=== PATIENT | female | born 1945 ===

== ENCOUNTER 2017-08-31 06:51 | Emergency (ER) | payer MEDICARE, OTHER ==
[~2017-08-31] VITALS: Ht 157.5 cm; Wt 81.7 kg
[~2017-08-31 06:51] MED LIST: ALLO100 PO; CIPR500 PO; CLON.2 PO; DOXY100 PO; Dyazide 37.5-21 EACH PO; FLUT.05NI; HYDACE5 PO; METR500 PO; OMEP20ER PO; ONDA4 PO; OXYACE5T PO; POTCHL10ER PO; RXHYD5325 PO; RXONDA4ODT MM; RXPROM25 PO; SIMV10 PO
[2017-08-31] MEDS ORDERED: POTCHL10ER PO (07:40)
[2017-08-31 07:41] LABS: Source, Urine Clean Catch
[2017-08-31 07:46] LABS: Bilirubin, Urine Neg (Neg); Blood, Urine 3+ (Neg); Glucose Qualitative, Urine Neg (Neg); Ketones, Urine Neg (Neg); Leukocyte Esterase, Urine 1+ (Neg); Nitrite, Urine Neg (Neg); Protein, Urine Neg (Neg); Urobilinogen, Urine NORM (Normal)
[2017-08-31 07:59] LABS: BASOPHILS ABSOLUTE AUTO 0.04 K/mm3 (0.00-0.23); BASOPHILS PERCENT AUTO 0 % (0-2); EOSINOPHILS ABSOLUTE AUTO 0.05 K/mm3 (0.00-0.68); EOSINOPHILS PERCENT AUTO 0 % (0-6); Hematocrit 44.4 % (33.0-51.0); Hemoglobin 15.5 g/dL (11.5-16.0); IMMATURE GRAN ABSOLUTE AUTO 0.03 K/mm3 (0.00-0.10); IMMATURE GRAN PERCENT AUTO 0 % (0-1); LYMPHOCYTES ABSOLUTE AUTO 2.67 K/mm3 (0.84-5.20); LYMPHOCYTES PERCENT AUTO 20 % (21-46); MONOCYTES PERCENT AUTO 10 % (4-13); Mean Corpuscular HGB 29.2 pg (26.0-34.0); Mean Corpuscular HGB Conc 34.9 g/dL (31.5-36.5); Mean Corpuscular Volume 84 fL (80-100); NEUTROPHILS ABSOLUTE AUTO 9.24 K/mm3 (1.96-9.15); NEUTROPHILS PERCENT AUTO 69 % (41-73); Platelet Count 191 K/mm3 (150-400); RDW Coefficient Variation 12.8 % (11.7-14.2); RDW Standard Deviation 39.2 fL (35.1-46.3); Red Blood Cell Count 5.31 M/mm3 (3.80-5.20); White Blood Cell Count 13.33 K/mm3 (4.00-11.30)
[2017-08-31 08:11] LABS: Appearance, Urine Clear (Clear); Color, Urine Yellow (P-Yellow); White Blood Cells, Urine 0-2 /hpf (0-5)
[2017-08-31 08:12] LABS: Bacteria Few /hpf; Mucus Light (0-Heavy); Squamous Epithelial Cells Mod /hpf (Few)
[2017-08-31 08:19] LABS: Alanine Aminotransfer (ALT/SGP 31 U/L (12-78); Albumin, Blood 3.6 g/dL (3.4-5.0); Albumin/Globulin Ratio 0.9 (0.8-1.8); Alk Phos 58 U/L (50-136); Anion Gap 9 mmol/L (6-16); Aspartate Aminotrans (AST/SGOT 18 U/L (12-37); Bilirubin, Total 0.9 mg/dL (0.1-1.0); Blood Urea Nitrogen 19 mg/dL (8-24); Bun/Creatinine Ratio 21.2 (12.0-20.0); CO2, Blood 25 mmol/L (21-32); Calcium, Blood 9.5 mg/dL (8.5-10.1); Chloride, Blood 105 mmol/L (98-108); Globulin, Blood 3.9 g/dL (2.2-4.0); Glomerular Filtration Rate >60 (60-); Glucose, Blood 118 mg/dL (70-99); Potassium, Blood 3.2 mmol/L (3.5-5.5); Sodium, Blood 139 mmol/L (136-145); Total Protein, Blood 7.5 g/dL (6.4-8.2)
[2017-08-31] MEDS ORDERED: Flagyl500 MG PO (09:02)
[2017-08-31] MEDS ORDERED: Amox Tr-K Clv1 EAC2 PO (09:02)
[2017-08-31] MEDS ORDERED: ONDA4ODT MM (09:03)
== END 2017-08-31 09:07 | disposition home or self-care (01) ==
LOC: ER 06:51
PROVIDERS: Physician Assistant
DX: K57.32 Diverticulitis of large intestine without perforation or abscess without bleeding (principal); Z88.1 Allergy status to other antibiotic agents; Z91.012 Allergy to eggs; Z88.8 Allergy status to other drugs, medicaments and biological substances; Z79.899 Other long term (current) drug therapy; I10 Essential (primary) hypertension; K21.9 Gastro-esophageal reflux disease without esophagitis
CPT/HCPCS: 36415; 74176; 80053; 81001; 82272; 83690; 85025; 87086; 96360; 99284; J7030

== ENCOUNTER → 2017-09-02 | Outpatient (CLI) | payer MEDICARE, OTHER ==
[~2017-09-02] MED LIST changes: +Amox Tr-K Clv1 EAC2 PO; +Flagyl500 MG PO; +ONDA4ODT MM
[2017-09-02 08:44] LABS: BASOPHILS ABSOLUTE AUTO 0.06 K/mm3 (0.00-0.23); BASOPHILS PERCENT AUTO 1 % (0-2); EOSINOPHILS ABSOLUTE AUTO 0.15 K/mm3 (0.00-0.68); EOSINOPHILS PERCENT AUTO 1 % (0-6); Hematocrit 45.6 % (33.0-51.0); Hemoglobin 15.7 g/dL (11.5-16.0); IMMATURE GRAN ABSOLUTE AUTO 0.04 K/mm3 (0.00-0.10); IMMATURE GRAN PERCENT AUTO 0 % (0-1); LYMPHOCYTES ABSOLUTE AUTO 2.58 K/mm3 (0.84-5.20); LYMPHOCYTES PERCENT AUTO 24 % (21-46); MONOCYTES PERCENT AUTO 9 % (4-13); Mean Corpuscular HGB 28.8 pg (26.0-34.0); Mean Corpuscular HGB Conc 34.4 g/dL (31.5-36.5); Mean Corpuscular Volume 84 fL (80-100); Mean Platelet Volume 10.1 fL (9.1-12.4); NEUTROPHILS ABSOLUTE AUTO 6.91 K/mm3 (1.96-9.15); NEUTROPHILS PERCENT AUTO 65 % (41-73); Platelet Count 232 K/mm3 (150-400); RDW Coefficient Variation 12.9 % (11.7-14.2); RDW Standard Deviation 38.5 fL (35.1-46.3); Red Blood Cell Count 5.46 M/mm3 (3.80-5.20); White Blood Cell Count 10.64 K/mm3 (4.00-11.30)
[2017-09-02 09:03] LABS: Albumin, Blood 3.7 g/dL (3.4-5.0); Albumin/Globulin Ratio 0.8 (0.8-1.8); Bilirubin, Total 0.8 mg/dL (0.1-1.0); Bun/Creatinine Ratio 16.2 (12.0-20.0); Calcium, Blood 9.3 mg/dL (8.5-10.1); Creatinine, Blood 1.11 mg/dL (0.40-1.00); Globulin, Blood 4.4 g/dL (2.2-4.0); Potassium, Blood 3.3 mmol/L (3.5-5.5); Total Protein, Blood 8.1 g/dL (6.4-8.2)
== END ==
LOC: LAB SHORT 08:41 → LAB EV 08:41
PROVIDERS: Physician Assistant
DX: R10.9 Unspecified abdominal pain (principal)
CPT/HCPCS: 80053; 83690; 85025

== ENCOUNTER → 2017-12-02 | Outpatient (CLI) | payer MEDICARE, OTHER ==
[2017-12-03 15:03] LABS: Stool Occult Bld Immuno 1 Negative (NEGATIVE)
== END | disposition home or self-care (01) ==
LOC: LAB SHORT 12:00 → LAB 12:00
PROVIDERS: Family Medicine
DX: Z12.11 Encounter for screening for malignant neoplasm of colon (principal); Z12.12 Encounter for screening for malignant neoplasm of rectum
CPT/HCPCS: G0328

== ENCOUNTER 2018-06-11 15:33 | Inpatient (IN) | payer MEDICARE, OTHER ==
[~2018-06-11] VITALS: Ht 154.9 cm; Wt 80.7 kg
[~2018-06-11 15:33] MED LIST changes: -ACET325 PO; -AMLO10 PO; -CLON.3TP TOP; -CLONIDINE1 EAC1 TD; -DOCU100 PO; -LISI20 PO; -Metoprolol Tart50 MG PO
[2018-06-11] MEDS ORDERED: LISI20 PO (15:47)
--- NOTE | 2018-06-12 01:31 | NUR ---
Admission/[place] of Care: Patient arrived to unit via stretcher, accompanied by ED nurse. A/O x4, c/o mild intermittent, otherwise denies pain/discomfort. C/o mild SOB when first transferred to ICU bed, has since resolved with increasing HOB and O2-96-98% on RA. Nitro gtt at 15mcg/min upon arrival to unit, increase to 25mcg/min, systolic BP 180's-190's. Will continue to monitor BP and titrate nitro gtt as indicated. Received verbal per Finn Pushpinger for PO KCl 40meq x1, per K+-3.3 from [facility]. Able to give patient PO clonidine, and Norvasc shortly after arrival, holding other PO meds at this time r/t intermittent nausea. Gave x1 prn Zofran, little effect noted. Contacted Dr. Ortega and received order for x1 additional dose of IV Zofran now. Will continue to monitor for pain, comfort, safety.
[2018-06-12 03:27] LABS: BASOPHILS ABSOLUTE AUTO 0.03 K/mm3 (0.00-0.23); BASOPHILS PERCENT AUTO 0 % (0-2); EOSINOPHILS ABSOLUTE AUTO 0.01 K/mm3 (0.00-0.68); EOSINOPHILS PERCENT AUTO 0 % (0-6); Hematocrit 48.1 % (33.0-51.0); Hemoglobin 16.2 g/dL (11.5-16.0); IMMATURE GRAN ABSOLUTE AUTO 0.03 K/mm3 (0.00-0.10); IMMATURE GRAN PERCENT AUTO 0 % (0-1); LYMPHOCYTES ABSOLUTE AUTO 1.93 K/mm3 (0.84-5.20); LYMPHOCYTES PERCENT AUTO 16 % (21-46); MONOCYTES ABSOLUTE AUTO 0.53 K/mm3 (0.16-1.47); MONOCYTES PERCENT AUTO 4 % (4-13); Mean Corpuscular HGB 27.7 pg (26.0-34.0); Mean Corpuscular HGB Conc 33.7 g/dL (31.5-36.5); Mean Corpuscular Volume 82 fL (80-100); NEUTROPHILS ABSOLUTE AUTO 9.96 K/mm3 (1.96-9.15); NEUTROPHILS PERCENT AUTO 80 % (41-73); Platelet Count 228 K/mm3 (150-400); RDW Coefficient Variation 13.3 % (11.7-14.2); RDW Standard Deviation 39.6 fL (35.1-46.3); Red Blood Cell Count 5.84 M/mm3 (3.80-5.20); White Blood Cell Count 12.49 K/mm3 (4.00-11.30)
[2018-06-12 03:51] LABS: Alanine Aminotransfer (ALT/SGP 28 U/L (12-78); Albumin, Blood 3.9 g/dL (3.4-5.0); Albumin/Globulin Ratio 1.1 (0.8-1.8); Alk Phos 73 U/L (50-136); Anion Gap 8 mmol/L (6-16); Aspartate Aminotrans (AST/SGOT 15 U/L (12-37); Bilirubin, Total 0.7 mg/dL (0.1-1.0); Blood Urea Nitrogen 20 mg/dL (8-24); Bun/Creatinine Ratio 25.7 (12.0-20.0); CO2, Blood 24 mmol/L (21-32); Calcium, Blood 9.2 mg/dL (8.5-10.1); Chloride, Blood 110 mmol/L (98-108); Creatinine, Blood 0.78 mg/dL (0.40-1.00); Globulin, Blood 3.5 g/dL (2.2-4.0); Glomerular Filtration Rate >60 (60-); Glucose, Blood 144 mg/dL (70-99); Potassium, Blood 3.5 mmol/L (3.5-5.5); Sodium, Blood 142 mmol/L (136-145); Total Protein, Blood 7.4 g/dL (6.4-8.2)
--- NOTE | 2018-06-12 06:05 | NUR ---
Shift Summary: Patient slept well throughout remainder of shift, after treating nausea. X2 doses of Zofran ineffective. Again contacted Dr. Ortega, received order for prn Reglan 10mg IV q6, x1 dose given with good effect, no further c/o nausea. PO clonidine, norvasc, and lisinopril given, PO labetalol held per concern for hypotension. Nitro gtt titrated up to 25mcg/min after admission, then down to 5mcg/min by 0230hr, placed on stand-by at 0300hr, systolic BP remained below 160 and stable throughout remainder of shift. X1 transfer to bedside commode to void without difficulty. X2 peripheral IV's remain patent and intact. Call light in reach, makes needs known. Will continue to monitor until report to day shift RN.
--- NOTE | 2018-06-12 07:15 | NUR ---
ASSUMED CAREO OF PT. PT IS ALERT AND ORIENTED. DENIES NAUSEA AND VOMITING BUT STATED SHE STILL HAVE A SLIGHT HEADACHE. WILL ALLOW PT TO SLEEP IN A LITTLE BIT. PT IS NOT ON NITROGLYCERIN DRIP.
--- NOTE | 2018-06-12 08:39 | NUR ---
PT IS EATING BREAKFAST AT THIS TIME. DENIES HEADACHE. PT'S FAMILY AT BEDSIDE.
[2018-06-12 10:58] LABS: Troponin I 0.044 ng/mL (0.000-0.040)
--- NOTE | 2018-06-12 12:41 | NUR ---
PT'S BP WENT UP TO 190/97 AFTER ECHO WAS DONE. PT WAS HAVING A 5/10 HEADACHE. PT WAS MEDICATED WITH FENTANYL AND ANTIHYPERTENSIVE MEDICATIONS. 25MINS LATER. PT IS COMPLAINING OF FEELING NAUSEOUS WHICH SHE WAS MEDICATED WITH ZOFRAN. CURRENTLY PT IS SLEEPING WITH COOL WASH CLOTH TO HER FOREHEAD AND ICE PACK BEHIND HER NAPE. HEADACHE AND NAUSEA HAD IMPROVED.
--- NOTE | 2018-06-12 13:14 | NUR ---
Echocardiogram performed by Gilberto Martinez supervised by me.
--- NOTE | 2018-06-12 15:17 | NUR ---
1340-PT WAS NOTED TO BE HAVE UNCONTROLLABLE MUSCLE TWITCHING TO HER LEGS AND TO HER R ARM. TWITCHING IS MORE NOTED ON HER LEGS. PT STATED SHE WAS DOING THIS LAST NIGHT WELL AFTER SHE RECEIVED "MEDICATION" PT HAD RECEIVED A DOSE OF ZOFRAN AT AROUND LUNCH TIME AND FENTANYL. SHE ALSO STATED SHE WAS DOING THIS LAST NIGHT AFTER SHE RECEIVED ZOFRAN. DR. KEITH WAS NOTIFIED. SHE STATED WILL BE COMING TO SEE PT AND NOT GIVE HER ANY MEDICATIONS. 1400-PT CONTINUES TO BE HAVING SOME MUSCLE TWITCHING/SPASMS. BLOOD PRESSURE STARTED TO INCREASED, TACHYCARDIC, NAUSEOUS HEADACHE. CALLED DR. KEITH AGAIN REGARDING THESE SYMPTOMS. ORDERS RECEIVED. 1420-DR. KEITH AT BEDSIDE. PT IS CALM NOW, MUSCLE TWITCHING/SPASMS HAS STOPPED. NAUSEA RESOLVED. PT IS RESTING QUITELY. UPDATED DR. KEITH REGARDING PT'S CONDITION. 1517- REPORT GIVEN TO PENNY STERN RN.
--- NOTE | 2018-06-12 15:36 | NUR ---
ASSUMED CARE REPORT FROM AVINASH AMEZQUITA RN.
[2018-06-12 17:50] LABS: Magnesium, Blood 1.9 mg/dL (1.6-2.4); Potassium, Blood 3.2 mmol/L (3.5-5.5)
--- NOTE | 2018-06-12 18:58 | NUR ---
PATIENT LEGS STARTED MOVING BACK AND FORTH AGAIN. PATIENT ASKED THAT I CALL DR. KEITH TO LET HER KNOW. DR. KEITH SAID THE ATIVAN HAD PROBABLY WORN OFF. FENTANYL WAS GIVEN FOR TYLER PAIN AGAIN AND ICE PROVIDED FOR TYLRE.
--- NOTE | 2018-06-12 20:31 | NUR ---
START OF SHIFT: REPORT FROM JARRED FUENTES. PT C/O TYLER AND BODY ACHES. FAMILY AT BEDSIDE. DR. MOISE NOTIFIED OF PT'S PRESENTATION. FLU SWAB ORDERED. PT TO CT ON TELE. PT BACKT O ROOM. FLU SWAB OBTAINED. FAMILY UPDATED. DR. MOELLER TO TALK TO FAMILY ONCE CT SCAN READ.
[2018-06-12 20:58] LABS: Influenza A Negative (NEGATIVE); Influenza B Negative (NEGATIVE)
[2018-06-12 22:57] LABS: Source, Urine Clean Catch
[2018-06-12 22:58] LABS: Bilirubin, Urine Neg (Neg); Blood, Urine 2+ (Neg); Glucose Qualitative, Urine Neg (Neg); Ketones, Urine Neg (Neg); Leukocyte Esterase, Urine 1+ (Neg); Nitrite, Urine Neg (Neg); Protein, Urine 2+ (Neg); Urobilinogen, Urine NORM (Normal)
[2018-06-12 23:05] LABS: Amorphous Light (0-Heavy); Appearance, Urine Hazy (Clear); Bacteria Few /hpf; Color, Urine Yellow (P-Yellow); Squamous Epithelial Cells Few /hpf (Few)
[2018-06-12 23:06] LABS: Albumin, Blood 3.9 g/dL (3.4-5.0); Bilirubin, Total 0.5 mg/dL (0.1-1.0); Calcium, Blood 9.5 mg/dL (8.5-10.1); Globulin, Blood 3.9 g/dL (2.2-4.0); Potassium, Blood 3.4 mmol/L (3.5-5.5); Total Protein, Blood 7.8 g/dL (6.4-8.2)
--- NOTE | 2018-06-12 23:07 | NUR ---
DR. FAGAN NOTIFIED RE PT CONTINUING TYLER AND LETHARGY AND WITH INCREASED HR T/O THE DAY. DURING THIS CONVERSATION PT'S HR ON THE MONITOR INCREASED TO 145-150 AND APPEARED TO BE A-FIB. EKG WAS ADDED TO OTHER ORDERS. UPON ENTERING PT'S ROOM, PT'S SON STATED THAT PT HAD JUST GOT BACK INTO BED FROM USING TOILET. EKG WAS DONE AFTER PT'S BLOOD DRAWN FROM [facility]. EKG SHOWING SINUS TACH (SEE EKG FOR FURTHER DETAILS) PT DENIED CP AND/OR SOB. CONTINUES TO C/O TYLER. FAMILY CONTINUE AT BEDSIDE.
--- NOTE | 2018-06-12 23:54 | NUR ---
DR. LARIOS NOTIFIED: RE PT UPPER LIP AND LOWER FACIAL SWELLING. KCL BACK AT 3.4. NEW ORDERS TO DC LISINOPRIL; DC FENTANYL; ADMINISITER KCL 20 mEq IV NOW. CONTINUE TO MONITOR.
--- NOTE | 2018-06-13 00:13 | NUR ---
VOMITING: PT UP TO TOILET TO VOID. N/V WITH APPRX 100 cc THICK VARIED COLORED EMESIS OUT. PT BACK TO BED WITH ASSIST. SON AT BEDSIDE. WILL CONTINUE TO MONITOR.
[2018-06-13 04:11] LABS: Hematocrit 48.1 % (33.0-51.0); Hemoglobin 15.6 g/dL (11.5-16.0); Mean Corpuscular HGB 27.8 pg (26.0-34.0); Mean Corpuscular HGB Conc 32.4 g/dL (31.5-36.5); Mean Platelet Volume 9.6 fL (9.1-12.4); Platelet Count 225 K/mm3 (150-400); RDW Coefficient Variation 13.8 % (11.7-14.2); Red Blood Cell Count 5.61 M/mm3 (3.80-5.20); White Blood Cell Count 13.74 K/mm3 (4.00-11.30)
[2018-06-13 04:14] LABS: Mean Corpuscular Volume 86 fL (80-100)
[2018-06-13 04:33] LABS: Albumin, Blood 3.7 g/dL (3.4-5.0); Anion Gap 8 mmol/L (6-16); Blood Urea Nitrogen 24 mg/dL (8-24); Bun/Creatinine Ratio 24.3 (12.0-20.0); CO2, Blood 24 mmol/L (21-32); Calcium, Blood 9.2 mg/dL (8.5-10.1); Chloride, Blood 108 mmol/L (98-108); Creatinine, Blood 0.99 mg/dL (0.40-1.00); Glomerular Filtration Rate 59 (60-); Glucose, Blood 156 mg/dL (70-99); Phosphorus, Blood 2.5 mg/dL (2.5-4.9); Potassium, Blood 3.7 mmol/L (3.5-5.5); Sodium, Blood 140 mmol/L (136-145)
--- NOTE | 2018-06-13 05:36 | NUR ---
WHILE AT BEDSIDE DURING LAB DRAW PT STATED IS BEGINNING TO FEEL A LITTLE BETTER. PT STATED RELIEF FROM NAUSEA AFTER REGLAN ADMIN. PT CURRENTLY RESTING QUIETLY WITH EYES CLOSED. VSS. CALL LIGHT WITHIN REACH. SON AT BEDSIDE.
--- NOTE | 2018-06-13 12:00 | NUR ---
ASSUMED CARE OF THIS PT FROM GINA CARTER. INTRODUCED SELF TO PT AND ASKED IF THERE ARE ANY NEEDS.
--- NOTE | 2018-06-13 17:08 | NUR ---
DR KEITH AT THE BEDSIDE ASSESSING PT.
--- NOTE | 2018-06-13 17:09 | NUR ---
SHIFT SUMMARY: PT ALERT AND ORIENTED X3 WITH MULTIPLE VISITORS AT THE BEDSIDE. PT'S BLOOD PRESSURES IMPROVED THIS AFTERNOON. 24 HOUR URINE CONTINUED AND WILL BE COMPLETE 06/14 @ 1210. PT DISCUSSING NEW MEDICATION REGIMEN TO DISCUSS CONT BLOOD PRESSURE CONTROL. NO C/O PAIN OR NAUSEA AT THIS TIME.
--- NOTE | 2018-06-13 18:15 | NUR ---
PT REPORTS ATTEMPTING TO HAVE A BM W/O SUCCESS. REPORTS SHE NORMALLY TAKES STOOL SOFTENERS AT HOME AND DOES NOT NORMAL TAKE PAIN MEDICATION, SHE HAS HERE IN THE HOSPITAL. PT PLACED ON COLACE BID AND PT GIVE MILK OF MAG PO TO FACILITATE BM.
--- NOTE | 2018-06-13 19:20 | NUR ---
REPORTED OFF TO GINA HENDERSON WHOM IS ASSUMING CARE OF PT.
--- NOTE | 2018-06-14 00:23 | NUR ---
PT RESTING QUIETLY WITH EYES CLOSED. AWAKENS EASILY TO RN AT BEDSIDE. PT STATES IS FEELING, "SO MUCH BETTER". VSS.
--- NOTE | 2018-06-14 06:11 | NUR ---
BP STABLE T/O NOC. NO HYDRALYZINE NEEDED. PT HAS BEEN UP TO USE RESTROOM INDEPENDENTLY. PT HAS RESTED WELL T/O NOC.
--- NOTE | 2018-06-14 07:08 | NUR ---
REPORT GIVEN TO VY FUENTES ASSUMING CARE OF PT AT THIS TIME.
--- NOTE | 2018-06-14 08:27 | NUR ---
AM ASSESSMENT: PT IS ALERT AND ORIENTED X3. PLEASANT AND COOPERATIVE CARE. CURRENTLY SITTING UP IN A CHAIR FINISHING BREAKFAST WITH VISITORS. DENIES ANY PAIN. PT IS IN GOOD SPIRITS AND HOPES TO GO HOME TODAY. MOVES SELF IN ROOM WITH SBA. LUNGS ARE CLEAR T/O BILATERALLY. SATS >90% ON RA. BP'S MORE STABLE BUT STILL ELEVATED PRIOR TO AM ANTI-HYPERTENSIVES. PT VOIDS PER HAT IN THE TOILET. PT FINISHING UP 24 HOUR URINE. WILL BE COMPLETE AT 1210.
[2018-06-14] MEDS ORDERED: CLON.3TP TOP (12:38)
[2018-06-14] MEDS ORDERED: CLONIDINE1 EAC1 TD (12:40)
[2018-06-14] MEDS ORDERED: ACET325 PO (12:40)
[2018-06-14] MEDS ORDERED: AMLO10 PO (12:40)
[2018-06-14] MEDS ORDERED: DOCU100 PO (12:41)
[2018-06-14] MEDS ORDERED: Metoprolol Tart50 MG PO (12:42)
--- NOTE | 2018-06-14 13:00 | NUR ---
DISCHARGE: WRITTEN AND VERBAL DISCHARGE INSTRUCTIONS GIVEN TO PT ON CONTINUED MANAGEMENT OF BLOOD PRESSURE, BP MONITORING, F/U APPTS, AND NEW MEDICATIONS. PIV'S D/C'D X2, CATHS INTACT ON BOTH. 1250-PT ESCORTED OUT PER W/C BY THIS RN TO 'S VEHICLE.
[2018-06-18 00:09] LABS: DOPAMINE, URINE 155 ug/L (Undefined); METANEPHRINE, UR 171 ug/L (Undefined)
[2018-06-19 05:21] LABS: ALDOS/RENIN RATIO 10.6 (0.0-30.0); ALDOSTERONE 2.7 ng/dL (0.0-30.0)
== END 2018-06-14 12:50 | disposition home or self-care (01) | DRG 305 ==
LOC: ER 15:33 → ERHOLD 15:34 → ICUW 06-12 00:10
PROVIDERS: Hospitalist; Internal Medicine; ADMIT Internal Medicine
DX: I16.1 Hypertensive emergency (principal); I24.8 Other forms of acute ischemic heart disease; E78.5 Hyperlipidemia, unspecified; M10.9 Gout, unspecified; J45.909 Unspecified asthma, uncomplicated; N18.3 Chronic kidney disease, stage 3 (moderate); M17.10 Unilateral primary osteoarthritis, unspecified knee; K21.9 Gastro-esophageal reflux disease without esophagitis; E87.6 Hypokalemia; K59.03 Drug induced constipation; T39.95XA Adverse effect of unspecified nonopioid analgesic, antipyretic and antirheumatic, initial encounter; Y92.239 Unspecified place in hospital as the place of occurrence of the external cause; T78.3XXA Angioneurotic edema, initial encounter; T46.4X5A Adverse effect of angiotensin-converting-enzyme inhibitors, initial encounter; I12.9 Hypertensive chronic kidney disease with stage 1 through stage 4 chronic kidney disease, or unspecified chronic kidney disease
CPT/HCPCS: 36415; 70450; 71046; 80053; 80069; 81001; 81050; 82088; 82384; 82947; 83735; 83835; 84132; 84244; 84484; 85025; 85027; 87086; 87804; 93005; 93010; 93306; 93975; 96365; 96366; 96375; 96376; 99285-25; J0360; J1200; J1650; J2060; J2405; J2550; J2765; J3010; J3480; J7050

== ENCOUNTER → 2018-06-11 | Outpatient (CLI) | payer MEDICARE, OTHER ==
[~2018-06-11] MED LIST changes: +ACET325 PO; +AMLO10 PO; +CLON.3TP TOP; +CLONIDINE1 EAC1 TD; +DOCU100 PO; +LISI20 PO; +Metoprolol Tart50 MG PO
[2018-06-11 13:10] LABS: BASOPHILS ABSOLUTE AUTO 0.08 K/mm3 (0.00-0.23); BASOPHILS PERCENT AUTO 1 % (0-2); EOSINOPHILS ABSOLUTE AUTO 0.26 K/mm3 (0.00-0.68); EOSINOPHILS PERCENT AUTO 2 % (0-6); Hematocrit 49.2 % (33.0-51.0); Hemoglobin 16.8 g/dL (11.5-16.0); IMMATURE GRAN ABSOLUTE AUTO 0.03 K/mm3 (0.00-0.10); IMMATURE GRAN PERCENT AUTO 0 % (0-1); LYMPHOCYTES ABSOLUTE AUTO 5.06 K/mm3 (0.84-5.20); LYMPHOCYTES PERCENT AUTO 46 % (21-46); MONOCYTES ABSOLUTE AUTO 1.02 K/mm3 (0.16-1.47); MONOCYTES PERCENT AUTO 9 % (4-13); Mean Corpuscular HGB 28.4 pg (26.0-34.0); Mean Corpuscular HGB Conc 34.1 g/dL (31.5-36.5); Mean Corpuscular Volume 83 fL (80-100); Mean Platelet Volume 9.5 fL (9.1-12.4); NEUTROPHILS ABSOLUTE AUTO 4.55 K/mm3 (1.96-9.15); NEUTROPHILS PERCENT AUTO 41 % (41-73); Platelet Count 218 K/mm3 (150-400); RDW Coefficient Variation 13.4 % (11.7-14.2); RDW Standard Deviation 40.4 fL (35.1-46.3); Red Blood Cell Count 5.91 M/mm3 (3.80-5.20)
[2018-06-11 13:21] LABS: Albumin, Blood 4.3 g/dL (3.4-5.0); Albumin/Globulin Ratio 1.1 (0.8-1.8); Bilirubin, Total 0.7 mg/dL (0.1-1.0); Calcium, Blood 9.4 mg/dL (8.5-10.1); Creatinine, Blood 0.96 mg/dL (0.40-1.00); Globulin, Blood 3.9 g/dL (2.2-4.0); Potassium, Blood 3.3 mmol/L (3.5-5.5); Total Protein, Blood 8.2 g/dL (6.4-8.2); Troponin I 0.055 ng/mL (0.000-0.040)
== END | disposition home or self-care (01) ==
LOC: LAB SHORT 13:05 → LAB EV 13:05
PROVIDERS: Physician Assistant Surgical
DX: I10 Essential (primary) hypertension (principal)
CPT/HCPCS: 80053; 84484; 85025

== ENCOUNTER 2018-06-21 12:08 | Observation (INO) | payer MEDICARE, OTHER ==
[~2018-06-21] VITALS: Ht 157.5 cm; Wt 79.5 kg
[~2018-06-21 12:08] MED LIST changes: -ABAT250V; -AMLO5 PO; -Advil200 M1 PO; -HYDCHL25 PO; -HYDRA25 PO; -LOSA50; -LOSA50 PO; -PROM25 PO
[2018-06-21] MEDS ORDERED: ABAT250V (15:18)
[2018-06-21] MEDS ORDERED: LOSA50 (15:18)
[2018-06-21] MEDS ORDERED: Advil200 M1 PO (17:10)
--- NOTE | 2018-06-21 19:49 | NUR ---
Shift Summary Pt arrived to unit from ED at approx 1700. HTN - medicated per orders. Pt is A&Ox4. C/o a headache and some nausea so will medicate for nausea and then headache. HTN improved some with IV labetolol, but rebound HTN noted, so administered IV hydralizine with improved BP noted. Pt reports that nausea medication helped some. See shift assessment for detailed assessment. Neuro check otherwise unremarkable. Pt is currently resting in bed with call light within reach. Denies any further questions, complaints or requests at this time. Report given to sue FUENTES.
[2018-06-22 03:55] LABS: BASOPHILS ABSOLUTE AUTO 0.05 K/mm3 (0.00-0.23); BASOPHILS PERCENT AUTO 0 % (0-2); EOSINOPHILS ABSOLUTE AUTO 0.04 K/mm3 (0.00-0.68); EOSINOPHILS PERCENT AUTO 0 % (0-6); Hematocrit 48.8 % (33.0-51.0); Hemoglobin 16.1 g/dL (11.5-16.0); IMMATURE GRAN ABSOLUTE AUTO 0.06 K/mm3 (0.00-0.10); IMMATURE GRAN PERCENT AUTO 0 % (0-1); LYMPHOCYTES ABSOLUTE AUTO 3.46 K/mm3 (0.84-5.20); LYMPHOCYTES PERCENT AUTO 26 % (21-46); MONOCYTES ABSOLUTE AUTO 0.92 K/mm3 (0.16-1.47); MONOCYTES PERCENT AUTO 7 % (4-13); Mean Corpuscular HGB 27.6 pg (26.0-34.0); Mean Corpuscular Volume 84 fL (80-100); Mean Platelet Volume 9.7 fL (9.1-12.4); NEUTROPHILS ABSOLUTE AUTO 8.91 K/mm3 (1.96-9.15); NEUTROPHILS PERCENT AUTO 66 % (41-73); Platelet Count 317 K/mm3 (150-400); RDW Coefficient Variation 13.6 % (11.7-14.2); RDW Standard Deviation 40.8 fL (35.1-46.3); Red Blood Cell Count 5.84 M/mm3 (3.80-5.20); White Blood Cell Count 13.44 K/mm3 (4.00-11.30)
[2018-06-22 04:09] LABS: International Normalized Ratio 1.03; Prothrombin Time Results 10.9 Sec (9.7-11.5)
[2018-06-22 04:16] LABS: Alanine Aminotransfer (ALT/SGP 50 U/L (12-78); Albumin, Blood 3.6 g/dL (3.4-5.0); Alk Phos 70 U/L (50-136); Anion Gap 9 mmol/L (6-16); Aspartate Aminotrans (AST/SGOT 13 U/L (12-37); Bilirubin, Total 0.6 mg/dL (0.1-1.0); Blood Urea Nitrogen 22 mg/dL (8-24); Bun/Creatinine Ratio 30.2 (12.0-20.0); CO2, Blood 26 mmol/L (21-32); CPK Creatine Kinase 29 U/L (26-193); Calcium, Blood 9.2 mg/dL (8.5-10.1); Chloride, Blood 106 mmol/L (98-108); Creatinine, Blood 0.73 mg/dL (0.40-1.00); Globulin, Blood 3.7 g/dL (2.2-4.0); Glomerular Filtration Rate >60 (60-); Glucose, Blood 119 mg/dL (70-99); Magnesium, Blood 1.9 mg/dL (1.6-2.4); Phosphorus, Blood 3.4 mg/dL (2.5-4.9); Potassium, Blood 3.5 mmol/L (3.5-5.5); Sodium, Blood 141 mmol/L (136-145); Total Protein, Blood 7.3 g/dL (6.4-8.2)
[2018-06-22 04:42] LABS: Creatine Kinase MB < 1.0 ng/mL (0.0-3.6); Creatine Kinase MB Index 3.4 (0.0-4.0)
--- NOTE | 2018-06-22 05:37 | NUR ---
SHIFT SUMMARY PT A&O X4. PT C/O NAUSEA, HEADACHE, & RESTLESS LEGS D/T CRAMP IN L LEG. PT STATES LEG CRAMP TO HAVE SUBSIDED, BUT STATES "IT'S STILL THERE, ON THE VERGE OF COMING BACK." PT'S L LEG APPEARANCE WNL, NO NOTABLE SWELLING, NO REDNESS, & LEG FEELS TO BE NORMAL TEMPERATURE. BP'S INTERMITTENTLY > 160 SYS W/ TX PER EMAR. MONITOR SHOWS NSR/ST, HR 90-115. MD ROMAN IN TO SEE PT THIS SHIFT W/ ORDERS GIVEN. PT IN BED W/ SON AT BEDSIDE T/O SHIFT. WILL CONTINUE TO MONITOR AND PROVIDE CARE UNTIL REPORT OFF TO DAY SHIFT RN.
--- NOTE | 2018-06-22 06:32 | NUR ---
PT GONE TO CT IN WHEELCHAIR W/ SPRAY PAINTER, PT NOW BACK IN ROOM FROM CT.
[2018-06-22] MEDS ORDERED: LOSA50 PO (12:36)
[2018-06-22] MEDS ORDERED: ACET325 PO (12:37)
[2018-06-22] MEDS ORDERED: AMLO5 PO (12:38)
[2018-06-22] MEDS ORDERED: HYDRA25 PO (12:38)
[2018-06-22] MEDS ORDERED: HYDCHL25 PO (12:39)
[2018-06-22] MEDS ORDERED: POTCHL10ER PO (12:40)
[2018-06-22] MEDS ORDERED: PROM25 PO (12:42)
--- NOTE | 2018-06-22 13:24 | NUR ---
DISCHARGED HOME MEDICATIOONS ORDERS FAXED TO [facility] PER REQUEST. PT IV REMOVED. PRESSURE DRESSING APPLIED. CONTINUE POT.
== END 2018-06-22 13:32 | disposition home or self-care (01) ==
LOC: ER 12:08 → PCU 12:09 → ERHOLD 12:09 → PCU 16:19
PROVIDERS: ADMIT Family Medicine
DX: I16.1 Hypertensive emergency (principal); I12.9 Hypertensive chronic kidney disease with stage 1 through stage 4 chronic kidney disease, or unspecified chronic kidney disease; N18.2 Chronic kidney disease, stage 2 (mild); N28.1 Cyst of kidney, acquired; D75.1 Secondary polycythemia; D89.2 Hypergammaglobulinemia, unspecified; E87.70 Fluid overload, unspecified; R60.0 Localized edema; E78.5 Hyperlipidemia, unspecified; K21.9 Gastro-esophageal reflux disease without esophagitis; M10.9 Gout, unspecified; Z79.899 Other long term (current) drug therapy; Z88.8 Allergy status to other drugs, medicaments and biological substances; Z91.010 Allergy to peanuts
CPT/HCPCS: 36415; 74150; 80053; 82550; 82553; 82668; 83735; 84100; 84484; 85025; 85610; 85730; 96372; 96374; 96375; 96376; 99285-25; G0378; J0360; J1644; J2550; J2765; J7050

== ENCOUNTER → 2018-06-21 | Outpatient (CLI) | payer MEDICARE, OTHER ==
[~2018-06-21] MED LIST changes: +ABAT250V; +ACET325 PO; +AMLO10 PO; +AMLO5 PO; +Advil200 M1 PO; +CLON.3TP TOP; +CLONIDINE1 EAC1 TD; +DOCU100 PO; +HYDCHL25 PO; +HYDRA25 PO; +LISI20 PO; +LOSA50; +LOSA50 PO; +Metoprolol Tart50 MG PO; +PROM25 PO
[2018-06-21 11:19] LABS: BASOPHILS ABSOLUTE AUTO 0.08 K/mm3 (0.00-0.23); BASOPHILS PERCENT AUTO 1 % (0-2); EOSINOPHILS ABSOLUTE AUTO 0.21 K/mm3 (0.00-0.68); EOSINOPHILS PERCENT AUTO 2 % (0-6); Hematocrit 51.3 % (33.0-51.0); Hemoglobin 17.2 g/dL (11.5-16.0); IMMATURE GRAN ABSOLUTE AUTO 0.06 K/mm3 (0.00-0.10); IMMATURE GRAN PERCENT AUTO 0 % (0-1); LYMPHOCYTES ABSOLUTE AUTO 4.73 K/mm3 (0.84-5.20); LYMPHOCYTES PERCENT AUTO 35 % (21-46); MONOCYTES ABSOLUTE AUTO 1.15 K/mm3 (0.16-1.47); MONOCYTES PERCENT AUTO 8 % (4-13); Mean Corpuscular HGB 28.1 pg (26.0-34.0); Mean Corpuscular HGB Conc 33.5 g/dL (31.5-36.5); Mean Corpuscular Volume 84 fL (80-100); Mean Platelet Volume 10.4 fL (9.1-12.4); NEUTROPHILS ABSOLUTE AUTO 7.44 K/mm3 (1.96-9.15); NEUTROPHILS PERCENT AUTO 55 % (41-73); Platelet Count 348 K/mm3 (150-400); RDW Coefficient Variation 13.6 % (11.7-14.2); RDW Standard Deviation 41.1 fL (35.1-46.3); Red Blood Cell Count 6.12 M/mm3 (3.80-5.20); White Blood Cell Count 13.67 K/mm3 (4.00-11.30)
[2018-06-21 11:31] LABS: Alanine Aminotransfer (ALT/SGP 65 U/L (12-78); Albumin, Blood 3.8 g/dL (3.4-5.0); Albumin/Globulin Ratio 0.9 (0.8-1.8); Alk Phos 83 U/L (40-126); Anion Gap 9 mmol/L (6-16); Aspartate Aminotrans (AST/SGOT 22 U/L (12-37); Bilirubin, Total 0.4 mg/dL (0.1-1.0); Blood Urea Nitrogen 24 mg/dL (8-24); Bun/Creatinine Ratio 26.7 (12.0-20.0); CO2, Blood 28 mmol/L (21-32); CPK Creatine Kinase 35 U/L (26-192); Calcium, Blood 9.6 mg/dL (8.5-10.1); Chloride, Blood 100 mmol/L (98-108); Globulin, Blood 4.2 g/dL (2.2-4.0); Glomerular Filtration Rate >60 (60-); Glucose, Blood 95 mg/dL (70-99); Sodium, Blood 137 mmol/L (136-145); Troponin I 0.043 ng/mL (0.000-0.040)
== END | disposition home or self-care (01) ==
LOC: LAB EV 11:12 → LAB SHORT 11:12
PROVIDERS: General Practice
DX: I10 Essential (primary) hypertension (principal)
CPT/HCPCS: 80053; 82550; 84484; 85025

== ENCOUNTER → 2018-10-26 | Outpatient (CLI) | payer MEDICARE, OTHER ==
[~2018-10-26] MED LIST changes: +ABAT250V; +AMLO5 PO; +Advil200 M1 PO; +HYDCHL25 PO; +HYDRA25 PO; +LOSA50; +LOSA50 PO; +PROM25 PO
== END | disposition home or self-care (01) ==
LOC: LAB SHORT 11:06 → LAB EV 11:06
DX: N39.0 Urinary tract infection, site not specified (principal)
CPT/HCPCS: 87086

== ENCOUNTER → 2018-11-07 | Outpatient (CLI) | payer MEDICARE, OTHER ==
[2018-11-07 13:46] LABS: BASOPHILS ABSOLUTE AUTO 0.07 K/mm3 (0.00-0.23); BASOPHILS PERCENT AUTO 1 % (0-2); EOSINOPHILS ABSOLUTE AUTO 0.22 K/mm3 (0.00-0.68); EOSINOPHILS PERCENT AUTO 2 % (0-6); Hemoglobin 15.7 g/dL (11.5-16.0); IMMATURE GRAN ABSOLUTE AUTO 0.03 K/mm3 (0.00-0.10); IMMATURE GRAN PERCENT AUTO 0 % (0-1); LYMPHOCYTES PERCENT AUTO 34 % (21-46); MONOCYTES PERCENT AUTO 8 % (4-13); Mean Corpuscular HGB 27.5 pg (26.0-34.0); Mean Corpuscular HGB Conc 33.4 g/dL (31.5-36.5); Mean Corpuscular Volume 83 fL (80-100); Mean Platelet Volume 10.8 fL (9.1-12.4); NEUTROPHILS ABSOLUTE AUTO 5.91 K/mm3 (1.96-9.15); NEUTROPHILS PERCENT AUTO 55 % (41-73); Platelet Count 262 K/mm3 (150-400); RDW Coefficient Variation 13.7 % (11.7-14.2); RDW Standard Deviation 40.6 fL (35.1-46.3); White Blood Cell Count 10.73 K/mm3 (4.00-11.30)
[2018-11-07 14:00] LABS: Albumin, Blood 3.6 g/dL (3.4-5.0); Albumin/Globulin Ratio 0.9 (0.8-1.8); Bilirubin, Total 0.4 mg/dL (0.1-1.0); Bun/Creatinine Ratio 28.9 (12.0-20.0); Calcium, Blood 9.4 mg/dL (8.5-10.1); Creatinine, Blood 0.97 mg/dL (0.40-1.00); Globulin, Blood 4.1 g/dL (2.2-4.0); Potassium, Blood 3.8 mmol/L (3.5-5.5); Total Protein, Blood 7.7 g/dL (6.4-8.2); Troponin I 0.018 ng/mL (0.000-0.040)
[2018-11-07 14:05] LABS: Source, Urine Clean Catch
[2018-11-07 14:17] LABS: Bacteria Mod /hpf; Red Blood Cells, Urine 25-50 /hpf (0-2); Squamous Epithelial Cells Rare /hpf (Few); White Blood Cells, Urine 50-100 /hpf (0-5)
[2018-11-07 14:57] LABS: Free Thyroxine 1.03 ng/dL (0.70-1.60); Thyroid Stimulating Hormone 1.505 uIU/mL (0.360-4.800)
== END | disposition home or self-care (01) ==
LOC: LAB SHORT 13:41 → LAB EV 13:41
PROVIDERS: General Practice
DX: R31.9 Hematuria, unspecified (principal); I10 Essential (primary) hypertension
CPT/HCPCS: 80053; 81015; 82550; 83880; 84439; 84443; 84484; 85025; 87077; 87086; 87186

== ENCOUNTER → 2020-05-11 | Outpatient (CLI) | payer MEDICARE, OTHER | LOC: LAB SHORT 14:15 → LAB 14:15 | DX: L08.0 Pyoderma (principal) | CPT/HCPCS: 87070; 87077; 87186; 87205 ==

== ENCOUNTER → 2020-05-11 | Outpatient (CLI) | payer MEDICARE, OTHER | LOC: LAB SHORT 07:42 → PLD 07:42 | DX: D48.5 Neoplasm of uncertain behavior of skin (principal) | CPT/HCPCS: 88305 ==

== ENCOUNTER → 2020-11-06 | Outpatient (CLI) | payer MEDICARE ==
[2020-11-06 11:56] LABS: BASOPHILS ABSOLUTE AUTO 0.02 K/mm3 (0.00-0.23); BASOPHILS PERCENT AUTO 0 % (0-2); EOSINOPHILS ABSOLUTE AUTO 0.03 K/mm3 (0.00-0.68); EOSINOPHILS PERCENT AUTO 0 % (0-6); Hematocrit 49.9 % (33.0-51.0); Hemoglobin 16.8 g/dL (11.5-16.0); IMMATURE GRAN ABSOLUTE AUTO 0.03 K/mm3 (0.00-0.10); IMMATURE GRAN PERCENT AUTO 0 % (0-1); LYMPHOCYTES ABSOLUTE AUTO 1.21 K/mm3 (0.84-5.20); LYMPHOCYTES PERCENT AUTO 15 % (21-46); MONOCYTES ABSOLUTE AUTO 0.91 K/mm3 (0.16-1.47); MONOCYTES PERCENT AUTO 11 % (4-13); Mean Corpuscular HGB 28.8 pg (26.0-34.0); Mean Corpuscular HGB Conc 33.7 g/dL (31.5-36.5); Mean Corpuscular Volume 86 fL (80-100); Mean Platelet Volume 9.8 fL (9.1-12.4); NEUTROPHILS PERCENT AUTO 73 % (41-73); Platelet Count 166 K/mm3 (150-400); RDW Standard Deviation 39.8 fL (35.1-46.3); Red Blood Cell Count 5.83 M/mm3 (3.80-5.20)
[2020-11-06 12:08] LABS: Albumin, Blood 3.8 g/dL (3.4-5.0); Bilirubin, Total 0.8 mg/dL (0.1-1.0); Bun/Creatinine Ratio 18.4 (12.0-20.0); Creatinine, Blood 0.98 mg/dL (0.40-1.00); Magnesium, Blood 1.6 mg/dL (1.6-2.4); Potassium, Blood 4.3 mmol/L (3.5-5.5); Total Protein, Blood 7.8 g/dL (6.4-8.2)
== END | disposition home or self-care (01) ==
LOC: LAB SHORT 11:51 → LAB 11:51
PROVIDERS: Physician Assistant Medical
DX: R51.9 Headache, unspecified (principal)
CPT/HCPCS: 80053; 83735; 85025

== ENCOUNTER → 2020-12-01 | Outpatient (CLI) | payer MEDICARE ==
[2020-12-01 09:08] LABS: BASOPHILS ABSOLUTE AUTO 0.07 K/mm3 (0.00-0.23); BASOPHILS PERCENT AUTO 1 % (0-2); EOSINOPHILS ABSOLUTE AUTO 0.28 K/mm3 (0.00-0.68); EOSINOPHILS PERCENT AUTO 3 % (0-6); Hematocrit 49.9 % (33.0-51.0); Hemoglobin 16.8 g/dL (11.5-16.0); IMMATURE GRAN ABSOLUTE AUTO 0.02 K/mm3 (0.00-0.10); IMMATURE GRAN PERCENT AUTO 0 % (0-1); LYMPHOCYTES ABSOLUTE AUTO 3.58 K/mm3 (0.84-5.20); LYMPHOCYTES PERCENT AUTO 41 % (21-46); MONOCYTES ABSOLUTE AUTO 0.86 K/mm3 (0.16-1.47); MONOCYTES PERCENT AUTO 10 % (4-13); Mean Corpuscular HGB 28.9 pg (26.0-34.0); Mean Corpuscular HGB Conc 33.7 g/dL (31.5-36.5); Mean Corpuscular Volume 86 fL (80-100); Mean Platelet Volume 10.1 fL (9.1-12.4); NEUTROPHILS ABSOLUTE AUTO 3.96 K/mm3 (1.96-9.15); NEUTROPHILS PERCENT AUTO 45 % (41-73); Platelet Count 214 K/mm3 (150-400); RDW Coefficient Variation 13.2 % (11.7-14.2); RDW Standard Deviation 40.4 fL (35.1-46.3); Red Blood Cell Count 5.81 M/mm3 (3.80-5.20); White Blood Cell Count 8.77 K/mm3 (4.00-11.30)
[2020-12-04 08:07] LABS: LYME IGG/IGM AB <0.91 ISR (0.00-0.90)
== END | disposition home or self-care (01) ==
LOC: LAB SHORT 08:58 → LAB 08:58
PROVIDERS: Physician Assistant Medical
DX: M25.561 Pain in right knee (principal); M25.562 Pain in left knee
CPT/HCPCS: 85025; 86618

== ENCOUNTER → 2021-07-16 | Outpatient (CLI) | payer MEDICARE ==
[2021-07-16 10:35] LABS: Bun/Creatinine Ratio 20.6 (12.0-20.0); Calcium, Blood 9.5 mg/dL (8.5-10.1); Creatinine, Blood 1.07 mg/dL (0.40-1.00); Potassium, Blood 4.7 mmol/L (3.5-5.5)
[2021-07-16 10:41] LABS: BASOPHILS ABSOLUTE AUTO 0.04 K/mm3 (0.00-0.23); BASOPHILS PERCENT AUTO 1 % (0-2); EOSINOPHILS ABSOLUTE AUTO 0.11 K/mm3 (0.00-0.68); EOSINOPHILS PERCENT AUTO 1 % (0-6); Hematocrit 52.5 % (33.0-51.0); Hemoglobin 17.9 g/dL (11.5-16.0); IMMATURE GRAN ABSOLUTE AUTO 0.03 K/mm3 (0.00-0.10); IMMATURE GRAN PERCENT AUTO 0 % (0-1); LYMPHOCYTES ABSOLUTE AUTO 2.23 K/mm3 (0.84-5.20); LYMPHOCYTES PERCENT AUTO 26 % (21-46); MONOCYTES ABSOLUTE AUTO 1.12 K/mm3 (0.16-1.47); MONOCYTES PERCENT AUTO 13 % (4-13); Mean Corpuscular HGB 29.2 pg (26.0-34.0); Mean Corpuscular HGB Conc 34.1 g/dL (31.5-36.5); Mean Corpuscular Volume 86 fL (80-100); NEUTROPHILS ABSOLUTE AUTO 5.21 K/mm3 (1.96-9.15); NEUTROPHILS PERCENT AUTO 60 % (41-73); RDW Coefficient Variation 13.3 % (11.7-14.2); RDW Standard Deviation 41.4 fL (35.1-46.3); Red Blood Cell Count 6.12 M/mm3 (3.80-5.20); White Blood Cell Count 8.74 K/mm3 (4.00-11.30)
[2021-07-16 10:49] LABS: Mean Platelet Volume 10.5 fL (9.1-12.4); Platelet Count 153 K/mm3 (150-400)
== END | disposition home or self-care (01) ==
LOC: LAB SHORT 10:22
PROVIDERS: Physician Assistant Medical
DX: E87.6 Hypokalemia (principal)
CPT/HCPCS: 80048; 85025

== ENCOUNTER → 2021-12-29 | Outpatient (CLI) | payer MEDICARE, OTHER | END | disposition home or self-care (01) | LOC: LAB SHORT 13:20 → LAB 13:20 | DX: N39.0 Urinary tract infection, site not specified (principal) | CPT/HCPCS: 87077; 87086; 87186 ==

== ENCOUNTER → 2022-02-12 | Outpatient (CLI) | payer MEDICARE, OTHER | END | disposition home or self-care (01) | LOC: LAB 12:11 → LAB SHORT 12:11 | DX: N39.0 Urinary tract infection, site not specified (principal) | CPT/HCPCS: 87077; 87086; 87186 ==

== ENCOUNTER → 2022-03-27 | Outpatient (CLI) | payer MEDICARE, OTHER ==
[2022-03-27 10:39] LABS: BASOPHILS ABSOLUTE AUTO 0.06 K/mm3 (0.00-0.23); BASOPHILS PERCENT AUTO 1 % (0-2); EOSINOPHILS ABSOLUTE AUTO 0.23 K/mm3 (0.00-0.68); EOSINOPHILS PERCENT AUTO 3 % (0-6); Hematocrit 53.9 % (33.0-51.0); Hemoglobin 18.2 g/dL (11.5-16.0); IMMATURE GRAN ABSOLUTE AUTO 0.03 K/mm3 (0.00-0.10); IMMATURE GRAN PERCENT AUTO 0 % (0-1); LYMPHOCYTES PERCENT AUTO 39 % (21-46); MONOCYTES ABSOLUTE AUTO 0.84 K/mm3 (0.16-1.47); MONOCYTES PERCENT AUTO 9 % (4-13); Mean Corpuscular HGB 28.9 pg (26.0-34.0); Mean Corpuscular HGB Conc 33.8 g/dL (31.5-36.5); Mean Corpuscular Volume 86 fL (80-100); Mean Platelet Volume 9.9 fL (9.1-12.4); NEUTROPHILS ABSOLUTE AUTO 4.44 K/mm3 (1.96-9.15); NEUTROPHILS PERCENT AUTO 49 % (41-73); Platelet Count 214 K/mm3 (150-400); RDW Standard Deviation 40.1 fL (35.1-46.3)
[2022-03-27 10:48] LABS: Albumin, Blood 4.2 g/dL (3.4-5.0); Bilirubin, Total 0.6 mg/dL (0.1-1.0); Calcium, Blood 9.6 mg/dL (8.5-10.1); Creatinine, Blood 1.14 mg/dL (0.40-1.00); Globulin, Blood 4.2 g/dL (2.2-4.0); Potassium, Blood 4.1 mmol/L (3.5-5.5); Total Protein, Blood 8.4 g/dL (6.4-8.2)
== END | disposition home or self-care (01) ==
LOC: LAB 10:34 → LAB SHORT 10:34
PROVIDERS: Chiropractor
DX: N18.30 Chronic kidney disease, stage 3 unspecified (principal); E87.1 Hypo-osmolality and hyponatremia
CPT/HCPCS: 80053; 85025

== ENCOUNTER → 2022-08-14 | Outpatient (CLI) | payer MEDICARE, OTHER ==
[2022-08-14 11:58] LABS: Source, Urine Clean Catch
[2022-08-14 17:39] LABS: Appearance, Urine Cloudy (Clear); Blood, Urine 5+ (Neg); Glucose Qualitative, Urine Neg (Neg); Ketones, Urine Neg (Neg); Leukocyte Esterase, Urine 3+ (Neg); Nitrite, Urine Pos (Neg); Protein, Urine 3+ (Neg); Urobilinogen, Urine 2+ (Normal); pH, Urine 6.5 (5.0-8.0)
[2022-08-14 17:46] LABS: Bilirubin, Urine 1+ (Neg); Color, Urine Amber (P-Yellow)
[2022-08-14 17:47] LABS: White Blood Cells, Urine TNTC /hpf (0-5)
[2022-08-14 17:49] LABS: Bacteria Many /hpf; Red Blood Cells, Urine TNTC /hpf (0-2); Squamous Epithelial Cells Few /hpf (Few)
== END | disposition home or self-care (01) ==
LOC: LAB SHORT 11:57 → LAB 11:57
PROVIDERS: Urology
DX: N39.0 Urinary tract infection, site not specified (principal)
CPT/HCPCS: 81001

== ENCOUNTER → 2022-08-17 | Outpatient (CLI) | payer MEDICARE, OTHER ==
[2022-08-17 16:12] LABS: BASOPHILS ABSOLUTE AUTO 0.05 K/mm3 (0.00-0.23); BASOPHILS PERCENT AUTO 1 % (0-2); EOSINOPHILS ABSOLUTE AUTO 0.04 K/mm3 (0.00-0.68); EOSINOPHILS PERCENT AUTO 0 % (0-6); Hematocrit 48.1 % (33.0-51.0); Hemoglobin 16.7 g/dL (11.5-16.0); IMMATURE GRAN ABSOLUTE AUTO 0.03 K/mm3 (0.00-0.10); IMMATURE GRAN PERCENT AUTO 0 % (0-1); LYMPHOCYTES ABSOLUTE AUTO 2.04 K/mm3 (0.84-5.20); LYMPHOCYTES PERCENT AUTO 21 % (21-46); MONOCYTES PERCENT AUTO 13 % (4-13); Mean Corpuscular HGB 29.4 pg (26.0-34.0); Mean Corpuscular HGB Conc 34.7 g/dL (31.5-36.5); Mean Corpuscular Volume 85 fL (80-100); Mean Platelet Volume 9.8 fL (9.1-12.4); NEUTROPHILS ABSOLUTE AUTO 6.28 K/mm3 (1.96-9.15); NEUTROPHILS PERCENT AUTO 65 % (41-73); Platelet Count 225 K/mm3 (150-400); RDW Coefficient Variation 13.2 % (11.7-14.2); RDW Standard Deviation 40.6 fL (35.1-46.3); Red Blood Cell Count 5.68 M/mm3 (3.80-5.20); White Blood Cell Count 9.74 K/mm3 (4.00-11.30)
[2022-08-17 16:24] LABS: Albumin, Blood 3.8 g/dL (3.4-5.0); Albumin/Globulin Ratio 0.9 (0.8-1.8); Bilirubin, Total 0.7 mg/dL (0.1-1.0); Bun/Creatinine Ratio 18.3 (12.0-20.0); Calcium, Blood 9.5 mg/dL (8.5-10.1); Creatinine, Blood 1.31 mg/dL (0.40-1.00); Globulin, Blood 4.1 g/dL (2.2-4.0); Potassium, Blood 4.2 mmol/L (3.5-5.5); Total Protein, Blood 7.9 g/dL (6.4-8.2)
== END ==
LOC: LAB SHORT 16:07 → LAB 16:07
PROVIDERS: Physician Assistant
DX: R50.9 Fever, unspecified (principal); R53.83 Other fatigue
CPT/HCPCS: 80053; 82150; 85025

== ENCOUNTER → 2022-08-18 | Outpatient (CLI) | payer MEDICARE, OTHER | LOC: LAB 10:46 → LAB SHORT 10:46 | DX: N39.0 Urinary tract infection, site not specified (principal) | CPT/HCPCS: 87086 ==

== ENCOUNTER → 2023-04-17 | Outpatient (CLI) | payer MEDICARE, OTHER ==
[2023-04-17 09:14] LABS: BASOPHILS ABSOLUTE AUTO 0.05 K/mm3 (0.00-0.23); BASOPHILS PERCENT AUTO 1 % (0-2); EOSINOPHILS ABSOLUTE AUTO 0.02 K/mm3 (0.00-0.68); EOSINOPHILS PERCENT AUTO 0 % (0-6); Hematocrit 48.4 % (33.0-51.0); Hemoglobin 16.5 g/dL (11.5-16.0); IMMATURE GRAN ABSOLUTE AUTO 0.02 K/mm3 (0.00-0.10); IMMATURE GRAN PERCENT AUTO 0 % (0-1); LYMPHOCYTES ABSOLUTE AUTO 0.76 K/mm3 (0.84-5.20); LYMPHOCYTES PERCENT AUTO 14 % (21-46); MONOCYTES ABSOLUTE AUTO 0.94 K/mm3 (0.16-1.47); MONOCYTES PERCENT AUTO 17 % (4-13); Mean Corpuscular HGB 28.9 pg (26.0-34.0); Mean Corpuscular HGB Conc 34.1 g/dL (31.5-36.5); Mean Corpuscular Volume 85 fL (80-100); Mean Platelet Volume 9.9 fL (9.1-12.4); NEUTROPHILS ABSOLUTE AUTO 3.75 K/mm3 (1.96-9.15); NEUTROPHILS PERCENT AUTO 68 % (41-73); Platelet Count 190 K/mm3 (150-400); RDW Coefficient Variation 13.2 % (11.7-14.2); RDW Standard Deviation 40.5 fL (35.1-46.3); White Blood Cell Count 5.54 K/mm3 (4.00-11.30)
[2023-04-17 09:26] LABS: Albumin, Blood 4.1 g/dL (3.4-5.0); Bilirubin, Total 0.5 mg/dL (0.1-1.0); Bun/Creatinine Ratio 16.3 (12.0-20.0); Calcium, Blood 9.6 mg/dL (8.5-10.1); Creatinine, Blood 1.23 mg/dL (0.40-1.00); Globulin, Blood 4.1 g/dL (2.2-4.0); Potassium, Blood 4.1 mmol/L (3.5-5.5); Total Protein, Blood 8.2 g/dL (6.4-8.2)
== END ==
LOC: LAB SHORT 09:10 → LAB 09:10
PROVIDERS: Physician Assistant
DX: R10.9 Unspecified abdominal pain (principal)
CPT/HCPCS: 80053; 85025

== ENCOUNTER → 2023-12-02 | Outpatient (CLI) | payer MEDICARE, OTHER | END | disposition home or self-care (01) | LOC: LAB 18:04 → LAB SHORT 18:04 | DX: N39.0 Urinary tract infection, site not specified (principal) | CPT/HCPCS: 87077; 87086; 87186 ==